=== PATIENT | male | born 1985 | race Caucasian/White ===

== ENCOUNTER 2024-07-30 09:05 | Emergency (ER) | payer MEDICARE, MEDICAID ==
[2024-07-30] MEDS: Sodium Chloride 0.9% 1,000 ML IV SCH (09:25)
[2024-07-30] MEDS: Ondansetron 4 MG/2 ML SDV IVPUSH ONE (09:25)
[2024-07-30] MEDS: HYDROmorphone 2 MG/ML SDV IVPUSH ONE (09:26)
[2024-07-30 09:29] LABS: BASOPHILS ABSOLUTE AUTO 0.1 x10-3/uL (0.0-0.3); BASOPHILS PERCENT AUTO 0.9 % (0.3-3.8); EOSINOPHILS ABSOLUTE AUTO 0.1 x10-3/uL (0.0-0.6); EOSINOPHILS PERCENT AUTO 0.9 % (0.1-6.8); HEMATOCRIT 39.7 % (38.3-50.1); HEMOGLOBIN 13.1 g/dL (12.9-17.7); LYMPHOCYTES ABSOLUTE AUTO 1.9 x10-3/uL (0.5-4.5); LYMPHOCYTES PERCENT AUTO 19.3 % (15.8-45.3); MEAN CORPUSCULAR HEMOGLOBIN 24.3 pg (27.0-33.3); MEAN CORPUSCULAR HGB CONC 32.9 g/dL (28.7-35.3); MEAN CORPUSCULAR VOLUME 73.9 fL (80.8-98.7); MEAN PLATELET VOLUME 7.4 fL (6.7-11.0); MONOCYTES ABSOLUTE AUTO 0.8 x10-3/uL (0.0-1.2); MONOCYTES PERCENT AUTO 7.8 % (5.5-15.2); NEUTROPHILS ABSOLUTE AUTO 6.9 x10-3/uL (1.7-6.9); NEUTROPHILS PERCENT AUTO 71.1 % (40.3-71.8); PLATELET COUNT,PLT 284 x10(3)uL (117-477); RED CELL DISTRIBUTION WIDTH 18.3 % (12.4-15.0); WHITE BLOOD CELL COUNT,WBC 9.7 x10-3/uL (3.2-10.1)
[2024-07-30 09:32] LABS: BLOOD UREA NITROGEN,BUN 14 mg/dL (7-18); BUN/CREATININE RATIO 12.7 (9-20); CALCIUM 9.5 mg/dL (8.6-10.2); CARBON DIOXIDE,CO2 22 mmol/L (21-32); CHLORIDE,CL 107 mmol/L (100-110); CREATININE 1.1 mg/dL (0.70-1.30); EST CRCL DRUG DOSING (CG) 91.95 mL/min; ESTIMATED GFR 89 mL/min (>60); GLUCOSE RANDOM 122 mg/dL (80-116); SODIUM,NA 145 mmol/L (135-145)
[2024-07-30 09:37] LABS: RED BLOOD CELL COUNT 5.37 x10(6)uL (3.90-5.90)
[2024-07-30] MEDS: Sodium Chloride 0.9% 10 ML Syringe FLUSH PRN (10:44)
[2024-07-30] MEDS: Ketorolac 30 MG/ML SDV IVPUSH ONE (10:44)
[2024-07-30 11:48] VITALS: BP 128/71; PULSE 71
== END 2024-07-30 10:50 | disposition home or self-care (01) ==
LOC: FB.ED 09:05
DX: G43.909 Migraine, unspecified, not intractable, without status migrainosus (principal); Z79.899 Other long term (current) drug therapy
CPT/HCPCS: 36415; 70450; 80048; 85025; 96361; 96374; 96375; 99283; 99284-25; J1171; J1885; J2405; J7030

== ENCOUNTER 2025-05-08 06:12 | Emergency (ER) | payer MEDICARE, MEDICAID ==
[2025-05-08 06:25] VITALS: BP 148/89; PULSE 106
[2025-05-08] MEDS: hydrOXYzine HCl 50 MG/ML SDV IM ONE (06:39)
[2025-05-08] MEDS: HYDROmorphone 2 MG/ML SDV IM ONE (06:40)
== END 2025-05-08 07:53 | disposition home or self-care (01) ==
LOC: FB.ED 06:12
DX: G43.E11 Chronic migraine with aura, intractable, with status migrainosus (principal); F17.210 Nicotine dependence, cigarettes, uncomplicated; Z79.899 Other long term (current) drug therapy
CPT/HCPCS: 96372; 99283; J1171; J3410

== ENCOUNTER 2025-06-27 11:05 | Emergency (ER) | payer MEDICARE, MEDICAID ==
[2025-06-27] MEDS: methylPREDNISolone Sodium Succinate 125 MG/2 ML SDV IM ONE (12:25)
[2025-06-27] MEDS: Acetaminophen/oxyCODONE 325-5 MG Tab PO STA (12:41)
[2025-06-27 13:42] VITALS: BP 136/74; PULSE 65
== END 2025-06-27 13:43 | disposition home or self-care (01) ==
LOC: FB.ED 11:05
DX: M51.16 Intervertebral disc disorders with radiculopathy, lumbar region (principal); M48.061 Spinal stenosis, lumbar region without neurogenic claudication; F17.210 Nicotine dependence, cigarettes, uncomplicated; Z79.899 Other long term (current) drug therapy
CPT/HCPCS: 72131; 96372; 99283; A9270; J2919